=== PATIENT | male | born 1990 | race Native Hawaiian/Other Pacific Islander ===

== ENCOUNTER 2018-05-21 17:21 | Emergency (ER) | payer OTHER ==
[2018-05-21] MEDS ORDERED: NAPROXEN 250 MG TABLET PO STA (20:26)
--- NOTE | 2018-05-21 20:28 | ED Physician Documentation ---
PD HPI UPPER EXT INJURY - Stated complaint Stated Complaint: R SHOULDER PX - Chief complaint Chief Complaint: Ext Problem - History obtained from History obtained from: Patient - History of Present Illness Location: Right, Shoulder Type of injury: Other (No direct injury, increased usage recently and pain now with movement and range of motion) Timing - onset: Other (The symptoms have been intermittent over the past couple years and worse over the past couple days) Timing - details: Gradual onset Severity Comments: Moderate Improved by: Rest, Immobilization Worsened by: Moving, Palpating Contributing factors: No: Anticoagulated Recently seen: Not recently seen Review of Systems Constitutional: denies: Fever Eyes: denies: Discharge Ears: denies: Ear pain Cardiac: denies: Chest pain / pressure Respiratory: denies: Cough Skin: denies: Laceration (s) Musculoskeletal: reports: Extremity pain, Joint pain. denies: Neck pain PD PAST MEDICAL HISTORY - Past Medical History Past Medical History: No - Past Surgical History Past Surgical History: No - Allergies Allergies/Adverse Reactions: Allergies Allergy/AdvReac Type Severity Reaction Status Date / Time No Known Drug Allergies Allergy Verified 05/21/18 17:26 - Social History Does the pt smoke?: No Smoking Status: Never smoker Does the pt drink ETOH?: Yes Does the pt have substance abuse?: No PD ED PE NORMAL - General General: Alert and oriented X 3, No acute distress - HEENT HEENT: Atraumatic, PERRL, EOMI, Ears normal - Cardiac Cardiac: RRR - Respiratory Respiratory: No respiratory distress - Extremities Extremities: No deformity. No: No tenderness to palpate (The patient has tenderness to palpation in the anterior portion of the shoulder, over the biceps tendon. The patient has decreased range of motion secondary to pain. The patient has a normal radial pulse and brisk cap refill. The patient has normal sensation light touch. No crepitus) - Neuro Neuro: Alert and oriented X 3, Normal speech - Psych Psych: Normal affect Results - Vitals Vitals: Vital Signs - 24 hr 05/21/18 05/21/18 17:26 20:45 Temperature 36.6 C Heart Rate 61 58 L Respiratory 16 16 Rate Blood Pressure 151/79 H 146/91 H O2 Saturation 98 100 Oxygen O2 Source Room air - Rads (name of study) shoulder Radiology: Final report received, See rad report PD MEDICAL DECISION MAKING - ED course ED course: The patient's symptoms most likely represent a biceps tendinitis. The patient appears appropriate for discharge and conservative management as an outpatient. I discussed with him the findings and plan and recommended physical therapy as an outpatient. I recommended follow-up with orthopedics for possible further management and possible Steroid injections into the affected area. I discussed warning signs and recommended returning to the emergency department for any worsening. Or any concerns Departure - Departure Disposition: 01 Home, Self Care Clinical Impression: Shoulder pain Qualifiers: Chronicity: acute Laterality: right Qualified Code(s): M25.511 - Pain in right shoulder Condition: Good Instructions: Biceps Tendonitis Proximal Follow-Up: [facility] [Provider Group] - Within 1 week (Please call to schedule appointment for further workup and evaluation of your pain) Comments: Please return to the emergency department for any worsening or any concerns
--- NOTE | 2018-05-21 20:41 | XRAY Report ---
Reason: pain Procedure Date: 05/21/2018 Accession Number: [id number] / [id number] Procedure: XR - Shoulder 3 View RT CPT Code: FULL RESULT: EXAM: RIGHT SHOULDER RADIOGRAPHY EXAM DATE: 05/21/2018 08:06 PM. CLINICAL HISTORY: Pain. Right shoulder pain. COMPARISON: None. TECHNIQUE: 4 views. FINDINGS: Bones: Normal. No fracture or bone lesion. Joints: The glenohumeral and acromioclavicular joints are normal. Soft tissues: No acute findings. IMPRESSION: Normal shoulder radiography. [facility]
[2018-05-21 20:46] VITALS: BP 146/91
== END 2018-05-21 20:46 | disposition home or self-care (01) ==
LOC: ED 17:21
DX: M25.511 Pain in right shoulder (principal)
CPT/HCPCS: 73030; 99283; A9270